=== PATIENT | female | born 1950 | race Caucasian/White ===

== ENCOUNTER 2016-10-15 14:52 | Inpatient (IN) | payer MEDICARE, OTHER ==
[~2016-10-15] VITALS: Ht 162.6 cm; Wt 57.2 kg
[~2016-10-15 14:52] MED LIST: ASPI81TA2 PO; ATOR40TA PO; CARV3.12 PO; GLIP10TA11 PO; HYDR-3326 PO; INSU100I19 SQ; METF500T PO
[2016-10-15] MEDS ORDERED: ATOR10TA PO (15:13)
[2016-10-15] MEDS ORDERED: TRAM50TA2 PO (15:13)
[2016-10-15] MEDS ORDERED: ERGO50003 PO (15:13)
[2016-10-15] MEDS ORDERED: MULT-24 PO (15:13)
[2016-10-15] MEDS ORDERED: CARV3.122 PO (15:13)
[2016-10-15] MEDS ORDERED: MAGN400O6 PO (15:13)
[2016-10-15] MEDS ORDERED: MELA5TAB PO (15:13)
[2016-10-15] MEDS ORDERED: ACET-868 PO (15:13)
[2016-10-15] MEDS ORDERED: METF500T4 PO (15:13)
[2016-10-15] MEDS ORDERED: INSU100V7 SQ (15:13)
[2016-10-15] MEDS ORDERED: POLY15DR57 EACHEYE (15:13)
[2016-10-15] MEDS ORDERED: DIPH1TAB70 PO (15:13)
[2016-10-15 15:29] LABS: BASOPHILS % (AUTO) 0.4 % (0.0-2.0); EOSINOPHILS # (AUTO) 0.2 /CMM (0.0-0.7); EOSINOPHILS % (AUTO) 1.9 % (0.0-6.0); HEMATOCRIT 39 % (33-45); HEMOGLOBIN 12.5 g/dL (11.5-14.8); LYMPHOCYTES # (AUTO) 3.1 /CMM (0.8-4.8); LYMPHOCYTES % (AUTO) 30.7 % (20.0-44.0); MEAN CORPUSCULAR HEMOGLOBIN 25 PG (26.0-33.0); MEAN CORPUSCULAR HGB CONC 32 g/dl (31.0-36.0); MEAN CORPUSCULAR VOLUME 77 fL (82-100); MONOCYTES # (AUTO) 0.7 /CMM (0.1-1.30); NEUTROPHILS # (AUTO) 6.2 /CMM (1.8-8.9); PLATELET COUNT (AUTO) 266 /CMM (150-450); RDW COEFFICIENT OF VARIATION 16.6 (11.5-15.0); RED BLOOD CELL COUNT(AUTO) 5.05 MIL/uL (4.0-5.2); WHITE BLOOD COUNT (AUTO) 10.3 K/uL (4.3-11.0)
[2016-10-15 15:39] LABS: CALCIUM, SERUM 8.9 mg/dL (8.5-10.1); CARBON DIOXIDE 29 mmol/L (21-32); CHLORIDE 103 mmol/L (98-107); CREATININE 0.7 mg/dL (0.6-1.3); GLUCOSE 176 mg/dL (74-106); POTASSIUM 4.2 mmol/L (3.5-5.1); SODIUM SERUM 141 mmol/L (136-145); UREA NITROGEN, BLOOD 10 mg/dL (7-18)
[2016-10-15 15:43] LABS: INR 0.99 (0.87-1.13); PROTHROMBIN TIME 10.3 SECS (9.5-12.7)
[2016-10-15 15:45] LABS: ALANINE AMINOTRANSFERASE 14 U/L (12-78); ALBUMIN 3.6 g/dL (3.4-5.0); ALKALINE PHOSPHATASE 73 U/L (46-116); ASPARTATE AMINOTRANSFERASE 12 U/L (15-37); BILIRUBIN,DIRECT 0.1 mg/dL (0.0-0.2); BILIRUBIN,TOTAL 0.5 mg/dL (0.2-1.0); TOTAL PROTEIN, SERUM 7.3 g/dL (6.4-8.2)
[2016-10-15 15:47] LABS: TROPONIN I < 0.017 ng/mL (0.00-0.056)
[2016-10-15] MEDS ORDERED: IV NS 0.9% 1,000 ML IV PRN (16:12)
[2016-10-15] MEDS ORDERED: TRAMADOL HCL 50 MG TABLET PO PRN (16:30)
[2016-10-15] MEDS ORDERED: MAGNESIUM HYDROXIDE 30 ML UDC PO PRN (16:30)
[2016-10-15] MEDS ORDERED: INSULIN REGULAR, HUMAN 100 UNIT/ML 3 ML VIAL SQ PRN (16:30)
[2016-10-15] MEDS ORDERED: ACETAMINOPHEN 325 MG TABLET PO PRN (16:30)
[2016-10-15] MEDS ORDERED: DEXTROSE 50%-WATER 50 ML DISP.SYRIN IV PRN (16:30)
[2016-10-15] MEDS ORDERED: Z GUARD REMEDY 2 OZ OINT TP PRN (16:30)
[2016-10-15] MEDS ORDERED: *INSULIN REGULAR(HUMULIN R)HUM 100 UNIT/ML VIAL SQ PRN (16:30)
[2016-10-15] MEDS ORDERED: DIPHENOXYLATE HCL/ATROP SULF 1 UDTAB TABLET PO PRN (16:30)
[2016-10-15] MEDS ORDERED: MAG HYDROX/AL HYDROX/SIMETH 30 ML UDC PO PRN (16:30)
[2016-10-15] MEDS ORDERED: Medication Not On Formulary EA (Melatonin 10 MG) PO PRN (16:30)
[2016-10-15] MEDS ORDERED: LEVOFLOXACIN 750 MG /D5W 150ML 150 ML IV ONE ×2 (16:30→16:34)
[2016-10-15] MEDS ORDERED: ONDANSETRON HCL/PF 4 MG/2 ML VIAL IVP PRN (16:30)
[2016-10-15] MEDS ORDERED: IV SET PRIMARY PUMP SET 1 EA INFUS.SET MC ONE ×2 (16:35→19:35)
[2016-10-15 17:00] VITALS: BP 109/64
[2016-10-15] MEDS: CARVEDILOL 3.125 MG TABLET PO SCH (17:00)
[2016-10-15] MEDS: BLOOD SUGAR DIAGNOSTIC 1 EACH STRIP IN SCH ×2 (17:39→21:46)
[2016-10-15] MEDS: glipiZIDE 10 MG TABLET PO SCH (18:41)
[2016-10-15] MEDS: METFORMIN 500 MG TABLET PO SCH (18:41)
[2016-10-15] MEDS: POLYVINYL ALCOHOL 15 ML BOTTLE OP SCH (18:43)
[2016-10-15] MEDS: HYDROCODONE/APAP 5/325MG 1 EACH TABLET PO PRN (18:48)
[2016-10-15] MEDS: IV NS 0.9% 1,000 ML IV PRN (19:44)
[2016-10-15 20:00] VITALS: BP 104/64
[2016-10-15] MEDS: INSULIN DETEMIR 100 UNIT/ML CARTRIDGE SQ SCH (21:47)
[2016-10-15] MEDS: ATORVASTATIN 10 MG TABLET PO SCH (21:47)
[2016-10-16] VITALS: BP 109/57
[2016-10-16 04:00] VITALS: BP 114/62
[2016-10-16 05:56] LABS: BASOPHILS # (AUTO) 0.1 /CMM (0.0-0.2); BASOPHILS % (AUTO) 0.6 % (0.0-2.0); EOSINOPHILS # (AUTO) 0.3 /CMM (0.0-0.7); EOSINOPHILS % (AUTO) 2.8 % (0.0-6.0); HEMATOCRIT 33 % (33-45); HEMOGLOBIN 10.7 g/dL (11.5-14.8); LYMPHOCYTES # (AUTO) 3.4 /CMM (0.8-4.8); LYMPHOCYTES % (AUTO) 38.7 % (20.0-44.0); MEAN CORPUSCULAR HEMOGLOBIN 25 PG (26.0-33.0); MEAN CORPUSCULAR HGB CONC 33 g/dl (31.0-36.0); MEAN CORPUSCULAR VOLUME 77 fL (82-100); MONOCYTES # (AUTO) 0.7 /CMM (0.1-1.30); MONOCYTES % (AUTO) 7.8 % (2.0-12.0); NEUTROPHILS # (AUTO) 4.4 /CMM (1.8-8.9); NEUTROPHILS % (AUTO) 50.1 % (43.0-81.0); PLATELET COUNT (AUTO) 194 /CMM (150-450); RDW COEFFICIENT OF VARIATION 17.4 (11.5-15.0); RED BLOOD CELL COUNT(AUTO) 4.23 MIL/uL (4.0-5.2); WHITE BLOOD COUNT (AUTO) 8.8 K/uL (4.3-11.0)
[2016-10-16] MEDS: IV NS 0.9% 1,000 ML IV PRN ×2 (05:56→22:02)
[2016-10-16 06:09] LABS: CALCIUM, SERUM 8.2 mg/dL (8.5-10.1); CREATININE 0.5 mg/dL (0.6-1.3); MAGNESIUM 1.4 mg/dL (1.8-2.4); PHOSPHORUS 3.9 mg/dL (2.5-4.9); POTASSIUM 3.6 mmol/L (3.5-5.1)
[2016-10-16] MEDS: BLOOD SUGAR DIAGNOSTIC 1 EACH STRIP IN SCH ×4 (06:35→22:02)
[2016-10-16 08:00] VITALS: BP 108/68
[2016-10-16] MEDS: HYDROCODONE/APAP 5/325MG 1 EACH TABLET PO PRN ×2 (08:49→15:06)
[2016-10-16] MEDS: glipiZIDE 10 MG TABLET PO SCH ×2 (08:50→17:00)
[2016-10-16] MEDS: PANTOPRAZOLE 40 MG TABLET.DR PO SCH (08:50)
[2016-10-16] MEDS: METFORMIN 500 MG TABLET PO SCH ×2 (08:50→17:00)
[2016-10-16] MEDS: MULTIVITAMINS,THERAPEUTIC 1 UDTAB TABLET PO SCH (08:50)
[2016-10-16] MEDS: CARVEDILOL 3.125 MG TABLET PO SCH ×2 (08:51→17:00)
[2016-10-16] MEDS: POLYVINYL ALCOHOL 15 ML BOTTLE OP SCH ×2 (08:55→17:57)
[2016-10-16 10:00] VITALS: BP 108/68
[2016-10-16 10:28] LABS: THYROID STIMULATING HORMONE 0.997 uIU/mL (0.358-3.74)
[2016-10-16] MEDS ORDERED: SECONDARY IV SET 1 EA INFUS.SET MC ONE ×2 (10:36→17:57)
[2016-10-16] MEDS: Magnesium 1GM/D5W 100ML PREMIX 100 ML IV SCH ×2 (10:40→11:50)
[2016-10-16 15:57] VITALS: BP 109/63
[2016-10-16] MEDS ORDERED: LEVOFLOXACIN 750 MG /D5W 150ML 750 MG in PREMIX 1 EA IV SCH (18:00)
[2016-10-16 20:00] VITALS: BP 120/64
[2016-10-16] MEDS: INSULIN DETEMIR 100 UNIT/ML CARTRIDGE SQ SCH (21:58)
[2016-10-16] MEDS: ATORVASTATIN 10 MG TABLET PO SCH (22:02)
[2016-10-16] MEDS: ZOLPIDEM TARTRATE 5 MG TABLET PO PRN (22:35)
[2016-10-17 06:52] LABS: BASOPHILS % (AUTO) 0.5 % (0.0-2.0); EOSINOPHILS # (AUTO) 0.2 /CMM (0.0-0.7); EOSINOPHILS % (AUTO) 2.8 % (0.0-6.0); HEMATOCRIT 35 % (33-45); HEMOGLOBIN 11.4 g/dL (11.5-14.8); LYMPHOCYTES # (AUTO) 2.9 /CMM (0.8-4.8); LYMPHOCYTES % (AUTO) 32.7 % (20.0-44.0); MEAN CORPUSCULAR HEMOGLOBIN 25 PG (26.0-33.0); MEAN CORPUSCULAR HGB CONC 32 g/dl (31.0-36.0); MEAN CORPUSCULAR VOLUME 77 fL (82-100); MONOCYTES # (AUTO) 0.6 /CMM (0.1-1.30); MONOCYTES % (AUTO) 6.4 % (2.0-12.0); NEUTROPHILS % (AUTO) 57.6 % (43.0-81.0); PLATELET COUNT (AUTO) 182 /CMM (150-450); RDW COEFFICIENT OF VARIATION 17.7 (11.5-15.0); RED BLOOD CELL COUNT(AUTO) 4.56 MIL/uL (4.0-5.2); WHITE BLOOD COUNT (AUTO) 8.8 K/uL (4.3-11.0)
[2016-10-17 07:14] LABS: BILIRUBIN,TOTAL 0.5 mg/dL (0.2-1.0); CALCIUM, SERUM 8.4 mg/dL (8.5-10.1); CREATININE 0.5 mg/dL (0.6-1.3); MAGNESIUM 1.4 mg/dL (1.8-2.4); PHOSPHORUS 4.2 mg/dL (2.5-4.9); POTASSIUM 4.4 mmol/L (3.5-5.1); TOTAL PROTEIN, SERUM 6.4 g/dL (6.4-8.2)
[2016-10-17] MEDS: BLOOD SUGAR DIAGNOSTIC 1 EACH STRIP IN SCH ×4 (07:30→21:17)
[2016-10-17 08:00] VITALS: BP 135/67
[2016-10-17] MEDS: MAGNESIUM OXIDE 400 MG TABLET PO SCH ×2 (08:10→21:17)
[2016-10-17] MEDS: CARVEDILOL 3.125 MG TABLET PO SCH ×2 (08:11→16:24)
[2016-10-17] MEDS: glipiZIDE 10 MG TABLET PO SCH ×2 (08:11→16:23)
[2016-10-17] MEDS: MULTIVITAMINS,THERAPEUTIC 1 UDTAB TABLET PO SCH (08:11)
[2016-10-17] MEDS: METFORMIN 500 MG TABLET PO SCH ×2 (08:11→16:23)
[2016-10-17] MEDS: PANTOPRAZOLE 40 MG TABLET.DR PO SCH (08:11)
[2016-10-17] MEDS: POLYVINYL ALCOHOL 15 ML BOTTLE OP SCH ×2 (08:13→16:25)
[2016-10-17] MEDS: HYDROCODONE/APAP 5/325MG 1 EACH TABLET PO PRN ×2 (08:27→16:24)
[2016-10-17] MEDS ORDERED: SECONDARY IV SET 1 EA INFUS.SET MC ONE ×2 (10:38→16:12)
[2016-10-17] MEDS: Magnesium 1GM/D5W 100ML PREMIX 100 ML IV SCH ×2 (10:44→11:53)
[2016-10-17 10:47] LABS: IRON, SERUM 33 ug/dl (50-175); TOTAL IRON BINDING CAPACITY 275 ug/dl (250-450)
[2016-10-17] MEDS: INSULIN REGULAR, HUMAN 100 UNIT/ML 3 ML VIAL SQ PRN ×3 (11:55→21:28)
[2016-10-17 16:00] VITALS: BP 136/75
[2016-10-17] MEDS: SOD FERRIC GLUC 125 MG in IV NS 0.9% 100 ML IV SCH (16:17)
[2016-10-17 20:00] VITALS: BP 123/64
[2016-10-17 20:15] VITALS: BP 123/64
[2016-10-17] MEDS: ATORVASTATIN 10 MG TABLET PO SCH (21:17)
[2016-10-17] MEDS: INSULIN DETEMIR 100 UNIT/ML CARTRIDGE SQ SCH (21:20)
[2016-10-17] MEDS: ZOLPIDEM TARTRATE 5 MG TABLET PO PRN (21:25)
[2016-10-18] MEDS: PANTOPRAZOLE 40 MG TABLET.DR PO SCH (06:38)
[2016-10-18] MEDS: BLOOD SUGAR DIAGNOSTIC 1 EACH STRIP IN SCH ×2 (06:38→11:42)
[2016-10-18 07:03] LABS: BASOPHILS % (AUTO) 0.2 % (0.0-2.0); EOSINOPHILS # (AUTO) 0.3 /CMM (0.0-0.7); EOSINOPHILS % (AUTO) 2.6 % (0.0-6.0); HEMATOCRIT 34 % (33-45); HEMOGLOBIN 11.4 g/dL (11.5-14.8); LYMPHOCYTES # (AUTO) 2.8 /CMM (0.8-4.8); LYMPHOCYTES % (AUTO) 23.4 % (20.0-44.0); MEAN CORPUSCULAR HEMOGLOBIN 26 PG (26.0-33.0); MEAN CORPUSCULAR HGB CONC 33 g/dl (31.0-36.0); MEAN CORPUSCULAR VOLUME 77 fL (82-100); MONOCYTES # (AUTO) 0.8 /CMM (0.1-1.30); MONOCYTES % (AUTO) 6.9 % (2.0-12.0); NEUTROPHILS # (AUTO) 7.9 /CMM (1.8-8.9); NEUTROPHILS % (AUTO) 66.9 % (43.0-81.0); PLATELET COUNT (AUTO) 210 /CMM (150-450); RDW COEFFICIENT OF VARIATION 17.5 (11.5-15.0); RED BLOOD CELL COUNT(AUTO) 4.41 MIL/uL (4.0-5.2); WHITE BLOOD COUNT (AUTO) 11.8 K/uL (4.3-11.0)
[2016-10-18 07:16] LABS: CALCIUM, SERUM 8.5 mg/dL (8.5-10.1); CREATININE 0.6 mg/dL (0.6-1.3)
[2016-10-18 08:00] VITALS: BP 120/60
[2016-10-18] MEDS: glipiZIDE 10 MG TABLET PO SCH (08:25)
[2016-10-18] MEDS: METFORMIN 500 MG TABLET PO SCH (08:25)
[2016-10-18] MEDS: MULTIVITAMINS,THERAPEUTIC 1 UDTAB TABLET PO SCH (08:25)
[2016-10-18 08:26] VITALS: BP 120/64
[2016-10-18] MEDS: CARVEDILOL 3.125 MG TABLET PO SCH (08:26)
[2016-10-18] MEDS: POLYVINYL ALCOHOL 15 ML BOTTLE OP SCH (08:26)
[2016-10-18] MEDS: HYDROCODONE/APAP 5/325MG 1 EACH TABLET PO PRN (08:26)
[2016-10-18] MEDS ORDERED: SECONDARY IV SET 1 EA INFUS.SET MC ONE ×2 (10:38→13:23)
[2016-10-18] MEDS: Magnesium 1GM/D5W 100ML PREMIX 100 ML IV SCH ×2 (10:39→11:45)
[2016-10-18] MEDS: INSULIN REGULAR, HUMAN 100 UNIT/ML 3 ML VIAL SQ PRN (11:42)
[2016-10-18] MEDS: SOD FERRIC GLUC 125 MG in IV NS 0.9% 100 ML IV SCH (13:24)
[2016-10-18] MEDS ORDERED: LEVOFLOXACIN 750 MG /D5W 150ML 750 MG in PREMIX 1 EA IV SCH (18:00)
[2016-10-19] MEDS ORDERED: ERGOCALCIFEROL (VITAMIN D 2) 50,000 UNIT CAPSULE PO SCH (09:00)
== END 2016-10-18 16:15 | DRG 194 ==
LOC: ER 14:56 → TELE 16:15 → MED 10-16 10:07
PROVIDERS: ADMIT Family Medicine; ATTEND Family Medicine
DX: J15.9 Unspecified bacterial pneumonia (principal); J91.8 Pleural effusion in other conditions classified elsewhere; E87.2 Acidosis; I50.22 Chronic systolic (congestive) heart failure; I95.1 Orthostatic hypotension; E83.42 Hypomagnesemia; E11.9 Type 2 diabetes mellitus without complications; F03.90 Unspecified dementia, unspecified severity, without behavioral disturbance, psychotic disturbance, mood disturbance, and anxiety; M19.90 Unspecified osteoarthritis, unspecified site; I25.10 Atherosclerotic heart disease of native coronary artery without angina pectoris; Z74.09 Other reduced mobility; D50.9 Iron deficiency anemia, unspecified; Z87.891 Personal history of nicotine dependence; Z95.1 Presence of aortocoronary bypass graft; I11.0 Hypertensive heart disease with heart failure; R53.1 Weakness; Z79.899 Other long term (current) drug therapy
CPT/HCPCS: 36415; 70450-TC; 71010-TC; 80048-TC; 80053-TC; 80061-TC; 80076-TC; 82306; 82728-TC; 82962-TC; 83540-TC; 83605-TC; 83735-TC; 84100-TC; 84439-TC; 84443-TC; 84484-TC; 85025-TC; 85730-TC; 87040-TC; 87081-TC; 93307-TC; 93880-TC; 97001-TC; 97116-TC; 97530-TC; A4216; A4606; J1815; J1956; J2916; J3475; J7030; Z7610